=== PATIENT | male | born 1980 | race Caucasian/White ===

== ENCOUNTER 2019-04-18 15:13 | Emergency (ER) | payer BC ==
[~2019-04-18] VITALS: Ht 172.7 cm; Wt 97.5 kg
[~2019-04-18 15:13] MED LIST: ESOM20 PO; HYDPAM50 PO; HYOS.125 SL; NAPR500 PO; OXYACE5T PO
[2019-04-18] MEDS ORDERED: Keflex500 MG PO (16:57)
[2019-04-18] MEDS ORDERED: Percocet 5-3251 EACH PO (16:57)
== END 2019-04-18 17:03 | disposition home or self-care (01) ==
LOC: ER 15:13
DX: S51.842A Puncture wound with foreign body of left forearm, initial encounter (principal); F17.210 Nicotine dependence, cigarettes, uncomplicated; Z23 Encounter for immunization; W34.09XA Accidental discharge from other specified firearms, initial encounter
CPT/HCPCS: 73090; 90471; 90714; 99283-25; A9270-GY